=== PATIENT | female | born 1965 | race Caucasian/White ===

== ENCOUNTER 2023-07-30 15:29 | Outpatient (CLI) | payer BC | END 2023-07-30 23:59 | disposition home or self-care (01) | LOC: MRI 15:29 | PROVIDERS: ATTEND Family Medicine Sports Medicine | DX: S83.282A Other tear of lateral meniscus, current injury, left knee, initial encounter (principal); M79.672 Pain in left foot; M25.562 Pain in left knee; M23.302 Other meniscus derangements, unspecified lateral meniscus, unspecified knee; M17.12 Unilateral primary osteoarthritis, left knee; M25.462 Effusion, left knee; R60.0 Localized edema; M71.22 Synovial cyst of popliteal space [Baker], left knee; M94.8X6 Other specified disorders of cartilage, lower leg; M22.42 Chondromalacia patellae, left knee; X58.XXXA Exposure to other specified factors, initial encounter; Y93.89 Activity, other specified; Y99.8 Other external cause status; Y92.89 Other specified places as the place of occurrence of the external cause | CPT/HCPCS: 73721 ==

== ENCOUNTER 2024-01-09 07:11 | Inpatient (IN) | payer BC ==
[2024-01-07 15:21] LABS: BILIRUBIN,URINE NEGATIVE (Neg); CLARITY,URINE SLIGHTLY CLOUDY (Clear); COLOR,URINE YELLOW (Yellow); GLUCOSE, URINE NEGATIVE (Neg); KETONES,URINE TRACE mg/dl (Neg); LEUKOCYTE ESTERASE ,URINE NEGATIVE (Neg); NITRITES, URINE NEGATIVE (Neg); OCCULT BLOOD,URINE NEGATIVE (Neg); PH,URINE 5.5 (4.8-8.0); PROTEIN,URINE NEGATIVE (Neg); UROBILINOGEN,URINE 0.2 E.U/dL (0.2-1.0)
[2024-01-07 15:29] LABS: BASOPHILS # (AUTO) 0.1 X10'3 (0-0.2); BASOPHILS % (AUTO) 0.7 % (0-1); EOSINOPHILS # (AUTO) 0.6 X10'3 (0-0.9); EOSINOPHILS % (AUTO) 8.5 % (0-6); LYMPHOCYTES # (AUTO) 1.5 X10'3 (1.1-4.8); LYMPHOCYTES % (AUTO) 19.8 % (21-51); MEAN CORPUSCULAR HEMOGLOBIN 30.6 PG (27.0-31.0); MEAN CORPUSCULAR HGB CONC 32.9 g/dL (33.0-36.5); MEAN PLATELET VOLUME 7.6 FL (7.4-10.4); MONOCYTES # (AUTO) 0.8 X10'3 (0-0.9); MONOCYTES % (AUTO) 10.3 % (2-12); NEUTROPHILS # (AUTO) 4.6 X10'3 (1.8-7.7); NEUTROPHILS % (AUTO) 60.7 % (42-75); PRE OP HEMOGLOBIN 11.5 g/dL (12.0-16.0); PRE OP PLATELET COUNT 260 X10'3 (140-440); PRE OP WHITE BLOOD COUNT 7.6 10'3 (4.8-10.8); RED BLOOD COUNT 3.76 X10'6 (4.20-5.60); RED CELL DISTRIBUTION WIDTH 14.2 % (11.5-14.5)
[2024-01-07 15:36] LABS: PRE OP PROTIME 10.9 SECONDS (9.0-12.0)
[2024-01-07 15:38] LABS: UA COLLECTION TYPE CLN CATCH MIDSTREAM
[2024-01-07 15:40] LABS: WBC,URINE 0-4 /HPF (0-4)
[2024-01-07 15:41] LABS: BACTERIA,URINE 1+ /HPF (Neg); RBC,URINE NONE SEEN /HPF (0-2)
[2024-01-07 15:42] LABS: HYALINE CASTS 0-3 /LPF (NEGATIVE); MUCUS STRANDS FEW /LPF (Neg); SQUAMOUS EPITHELIAL CELL,UR MANY /LPF (FEW)
[2024-01-07 15:45] LABS: ALBUMIN 3.2 G/DL (3.4-5.0); ALBUMIN/GLOBULIN RATIO 0.8 (1.1-1.5); ALKALINE PHOSPHATASE 118 IU/L (46-116); BLOOD UREA NITROGEN 11 MG/DL (7-18); BUN/CREATININE RATIO 12.2 (10.0-20.0); CALCIUM 9.2 MG/DL (8.5-10.1); CHLORIDE 105 MMOL/L (99-107); PRE OP ALT 14 U/L (30-65); PRE OP ANION GAP 5 (8-16); PRE OP AST 11 U/L (10-37); PRE OP BILIRUB, TOTAL 0.3 MG/DL (0.0-1.0); PRE OP GLUCOSE 72 MG/DL (70-104); PRE OP POTASSIUM 4.1 MMOL/L (3.4-5.1); PRE OP SODIUM 139 MMOL/L (135-145); THYROID STIMULATING HORMONE 0.02 ulU/ml (0.34-4.50); TOTAL CARBON DIOXIDE 29.2 MMOL/L (24-32); TOTAL PROTEIN 7.4 G/DL (6.4-8.2); eGFR 64 ML/MIN
[2024-01-08 10:19] LABS: ABG BASE EXCESS 0.7 mmol/L (-2.0-3.0); ABG HCO3 25.2 mmol/L (21.0-28.0); ABG OXYGEN SATURATION 96.6 % (94.0-98.0); ABG PCO2 (T) 39.9 mmHg (32.0-45.0); ABG PH (T) 7.418 (7.350-7.450); ABG PO2 (T) 84.5 mmHg (83.0-108.0); ALLEN'S TEST POSITIVE; FCOHb 0.3 % (0.5-1.5); FHHb 3.4 % (0.0-5.0); FMetHb 0.3 % (0.0-1.5); MODE ROOM AIR; TOTAL HEMOGLOBIN 12.3 G/dl (12.0-16.0)
[~2024-01-09] VITALS: Ht 172.7 cm; Wt 76.2 kg
[2024-01-09] VITALS (23 sets, daily range): BP systolic 92–132; BP diastolic 59–89; PULSE 56–71; RESP 12–27; TEMP 97.4–98.7; O2SAT 92–100
[2024-01-09] MEDS: ceFAZolin 2gm in dextrose, iso 50 ML IV ONE (05:30)
[~2024-01-09 07:11] MED LIST: BUPR300T53 PO; CELE-127 PO; FLUO20CA39 PO; GABA300C PO; LEVO137T2 PO
[2024-01-09] MEDS ORDERED: iohexol 300mg/ml 100ml inj. ONE (08:19)
[2024-01-09] MEDS ORDERED: iohexol 300 MG/1 ML 50ml polymer ONE (08:19)
[2024-01-09] MEDS: famotidine 20mg tablet PO ONE (09:01)
[2024-01-09] MEDS: ringers solution, lacted 1,000 ML IV SCH ×2 (09:02→16:08)
[2024-01-09] MEDS ORDERED: hydrALAZINE 20mg/ml inj. IV PRN (09:25)
[2024-01-09] MEDS ORDERED: morphine 4 MG/ML inj SYRINge IV PRN ×2 (09:25→15:05)
[2024-01-09] MEDS ORDERED: labetalol 20mg/4ml (5mg/ml) syringe IV PRN (09:25)
[2024-01-09] MEDS ORDERED: fentaNYL/PF 50MCG/1 ML 2ML syringe IV PRN (09:25)
[2024-01-09] MEDS ORDERED: ondansetron/PF 4mg/2ml inj IV PRN (09:25)
[2024-01-09] MEDS ORDERED: morphine 2 MG/ML inj. syringe IV PRN ×2 (09:25→15:05)
[2024-01-09] MEDS ORDERED: LIDOcaine 1% (10mg/ml) 2ml vial ONE (09:28)
[2024-01-09] MEDS ORDERED: BUPIVAcaine 2.5mg/ml inj 50ml vial (contains preservative) ONE (10:41)
[2024-01-09] MEDS ORDERED: sevoflurane 250ml liquid IH ONE (10:41)
[2024-01-09] MEDS ORDERED: midazolam 1 mg/ML 2ml injection ONE (10:45)
[2024-01-09] MEDS ORDERED: fentaNYL /PF 50mcg/ml 5ml ampule ONE (10:46)
[2024-01-09] MEDS ORDERED: BUPIVACAINE liposomal/PF 13.3 MG/ML vial IM ONE (10:51)
[2024-01-09] MEDS ORDERED: acetaminophen 1,000mg/100ml IV 100 ML IV ONE (11:22)
[2024-01-09] MEDS ORDERED: LIDOcaine 2% (20mg/ml) 5ml vial ONE (11:24)
[2024-01-09] MEDS ORDERED: propofol inj 20 ML IV ONE (11:24)
[2024-01-09] MEDS ORDERED: ondansetron/PF 4mg/2ml inj ONE (11:24)
[2024-01-09] MEDS ORDERED: rocuronium 10mg/ml inj IV ONE ×2 (11:25)
[2024-01-09] MEDS: BUPIVAcaine 2.5mg/ml inj 50ml vial (contains preservative) SQ ONE (11:47)
[2024-01-09] MEDS ORDERED: albumin (Human) 5% 250ml 250 ML IV ONE (11:52)
[2024-01-09] MEDS ORDERED: ePHEDrine 50MG/ML INJ. ONE (11:54)
[2024-01-09] MEDS ORDERED: sugammadex 200mg/2ml injection IV ONE (13:44)
[2024-01-09] MEDS ORDERED: HYDROmorphone inj. 0.5 MG/0.5 ML DISP.SYRIN IV PRN (15:05)
[2024-01-09] MEDS ORDERED: albuterol 2.5 MG/3 ML nebule NEB PRN (15:05)
[2024-01-09] MEDS ORDERED: metoclopramide 5 mg/ml inj IV PRN (15:05)
[2024-01-09 15:31] LABS: ABG BASE EXCESS -2.6 mmol/L (-2.0-3.0); ABG HCO3 23.3 mmol/L (21.0-28.0); ABG OXYGEN SATURATION 89.8 % (94.0-98.0); ABG PCO2 (T) 43.1 mmHg (32.0-45.0); ABG PH (T) 7.346 (7.350-7.450); ABG PO2 (T) 57.3 mmHg (83.0-108.0); FCOHb 0.2 % (0.5-1.5); FHHb 10.1 % (0.0-5.0); FLOW 2 L/min; FMetHb 0.3 % (0.0-1.5); FO2Hb 89.4 % (94.0-98.0); MODE NASAL CANNULA; TOTAL HEMOGLOBIN 11.6 G/dl (12.0-16.0)
[2024-01-09] MEDS: ketorolac trometh 30MG/ML vial 30 MG/ML VIAL IV PRN (15:59)
[2024-01-09] MEDS ORDERED: gabapentin 300mg capsule PO PRN (17:10)
[2024-01-09] MEDS: ceFAZolin 1GM/D5W- ADD-VANTAGE 50 ML IV SCH (17:42)
[2024-01-09] MEDS: fentaNYL/PF 50MCG/1 ML 2ML syringe IV PRN (17:47)
[2024-01-09] MEDS: celeCOXIB 100mg capsule PO SCH (20:07)
[2024-01-09] MEDS: BUPROPION HCL 150MG XL 24 HR 150 MG TAB PO SCH (20:08)
[2024-01-09] MEDS: gabapentin 300mg capsule PO SCH (20:08)
[2024-01-09] MEDS: FLUoxetine 20mg capsule PO SCH (20:08)
[2024-01-09] MEDS: potassium Cl 20mEq in D5-NS 1,000 ML IV SCH (21:40)
[2024-01-10] VITALS (9 sets, daily range): BP systolic 104–130; BP diastolic 49–64; PULSE 68–75; RESP 14–16; TEMP 97.2–98.5; O2SAT 93–100
[2024-01-10] MEDS: levoTHYROXINE 112mcg tablet PO SCH (07:52)
[2024-01-10] MEDS: levoTHYROXINE 25mcg tablet PO SCH (07:53)
[2024-01-10] MEDS: acetaminophen 325mg tablet PO PRN (11:12)
[2024-01-10] MEDS: HYDROcodone/acetaminophen 10/325mg tab PO PRN ×2 (14:45→23:13)
[2024-01-10] MEDS: magnesium oxide 400mg tablet PO SCH (19:43)
[2024-01-10] MEDS: magnesium hydroxide 30ml (MOM) UD suspension PO SCH (19:46)
[2024-01-11] VITALS (9 sets, daily range): BP systolic 106–120; BP diastolic 46–64; PULSE 64–80; RESP 16–18; TEMP 97.3–98.9; O2SAT 87–98
[2024-01-11 08:20] LABS: BASOPHILS % (AUTO) 0.4 % (0-1); EOSINOPHILS # (AUTO) 0.3 X10'3 (0-0.9); EOSINOPHILS % (AUTO) 3.4 % (0-6); HEMATOCRIT 30.3 % (35.0-45.0); LYMPHOCYTES # (AUTO) 1.6 X10'3 (1.1-4.8); LYMPHOCYTES % (AUTO) 17.8 % (21-51); MEAN CORPUSCULAR HEMOGLOBIN 30.5 PG (27.0-31.0); MEAN CORPUSCULAR HGB CONC 32.8 g/dL (33.0-36.5); MEAN CORPUSCULAR VOLUME 92.8 FL (78-98); MEAN PLATELET VOLUME 7.9 FL (7.4-10.4); MONOCYTES # (AUTO) 0.8 X10'3 (0-0.9); MONOCYTES % (AUTO) 8.8 % (2-12); NEUTROPHILS # (AUTO) 6.1 X10'3 (1.8-7.7); NEUTROPHILS % (AUTO) 69.6 % (42-75); PLATELET COUNT 228 X10'3 (140-440); RED BLOOD COUNT 3.27 X10'6 (4.20-5.60); RED CELL DISTRIBUTION WIDTH 14.1 % (11.5-14.5); WHITE BLOOD COUNT 8.8 X10'3 (4.5-11.0)
[2024-01-11 08:47] LABS: ALANINE AMINOTRANSFERASE 13 U/L (12-78); ALBUMIN 2.7 G/DL (3.4-5.0); ALBUMIN/GLOBULIN RATIO 0.8 (1.1-1.5); ALKALINE PHOSPHATASE 87 IU/L (46-116); ANION GAP 3 (8-16); ASPARTATE AMINO TRANSFERASE 18 U/L (10-37); BILIRUBIN,TOTAL 0.3 MG/DL (0.1-1.0); BLOOD UREA NITROGEN 7 MG/DL (7-18); BUN/CREATININE RATIO 8.2 (10.0-20.0); CALCIUM 8.6 MG/DL (8.5-10.1); CHLORIDE 103 MMOL/L (99-107); CREATININE 0.85 MG/DL (0.40-0.90); GLUCOSE 99 MG/DL (70-104); POTASSIUM 4.2 MMOL/L (3.5-5.1); SODIUM 137 MMOL/L (135-145); TOTAL CARBON DIOXIDE 30.9 MMOL/L (24-32); TOTAL PROTEIN 6.3 G/DL (6.4-8.2); eCRCL 71 ML/MIN; eGFR 68 ML/MIN
[2024-01-12] VITALS (9 sets, daily range): BP systolic 97–112; BP diastolic 48–67; PULSE 61–82; RESP 14–18; TEMP 97.3–98.6; O2SAT 94–99
[2024-01-13] VITALS (7 sets, daily range): BP systolic 100–132; BP diastolic 53–68; PULSE 65–88; RESP 14–20; TEMP 97.2–98.8; O2SAT 94–99
[2024-01-13 11:43] LABS: BASOPHILS % (AUTO) 0.2 % (0-1); EOSINOPHILS # (AUTO) 0.3 X10'3 (0-0.9); EOSINOPHILS % (AUTO) 4.1 % (0-6); HEMOGLOBIN 10.6 g/dl (12.0-16.0); MEAN CORPUSCULAR HEMOGLOBIN 30.7 PG (27.0-31.0); MEAN CORPUSCULAR VOLUME 93.1 FL (78-98); MEAN PLATELET VOLUME 7.9 FL (7.4-10.4); MONOCYTES # (AUTO) 0.5 X10'3 (0-0.9); MONOCYTES % (AUTO) 7.6 % (2-12); NEUTROPHILS # (AUTO) 5.1 X10'3 (1.8-7.7); NEUTROPHILS % (AUTO) 73.1 % (42-75); PLATELET COUNT 270 X10'3 (140-440); RED BLOOD COUNT 3.44 X10'6 (4.20-5.60); WHITE BLOOD COUNT 6.9 X10'3 (4.5-11.0)
[2024-01-13 11:59] LABS: ALBUMIN 2.4 G/DL (3.4-5.0); ANION GAP 3 (8-16); BLOOD UREA NITROGEN 6 MG/DL (7-18); BUN/CREATININE RATIO 7.5 (10.0-20.0); CALCIUM 9.2 MG/DL (8.5-10.1); CHLORIDE 105 MMOL/L (99-107); GLUCOSE 100 MG/DL (70-104); POTASSIUM 4.1 MMOL/L (3.5-5.1); SODIUM 139 MMOL/L (135-145); TOTAL CARBON DIOXIDE 30.6 MMOL/L (24-32); eCRCL 75 ML/MIN; eGFR 73 ML/MIN
[2024-01-13] MEDS: ALPRAZolam 0.25mg tablet PO ONE (20:35)
[2024-01-14] VITALS (10 sets, daily range): BP systolic 98–127; BP diastolic 49–69; PULSE 69–86; RESP 12–20; TEMP 97.9–98.5; O2SAT 92–99
[2024-01-15 02:00] VITALS: BP 101/60; PULSE 72; RESP 16; TEMP 97.9; O2SAT 98
[2024-01-15 07:00] VITALS: BP 110/63; PULSE 76; RESP 16; TEMP 98; O2SAT 96
[2024-01-15 10:33] VITALS: PULSE 77; RESP 18; O2SAT 97
[2024-01-15 11:00] VITALS: BP 117/69; PULSE 80; RESP 18; TEMP 98.1; O2SAT 99
[2024-01-15 15:46] VITALS: BP 127/65; PULSE 66; RESP 14; TEMP 97.6; O2SAT 97
== END 2024-01-15 16:15 | disposition home or self-care (01) | DRG 164 ==
LOC: PAS IN 07:11 → PCU 3S 19:20
PROVIDERS: ADMIT Surgery; ATTEND Surgery
PROC: 07B74ZZ Excision of Thorax Lymphatic, Percutaneous Endoscopic Approach (ICD-10-PCS; 2024-01-09)
PROC: 8E0W4CZ Robotic Assisted Procedure of Trunk Region, Percutaneous Endoscopic Approach (ICD-10-PCS; 2024-01-09)
PROC: 0B9N40Z Drainage of Right Pleura with Drainage Device, Percutaneous Endoscopic Approach (ICD-10-PCS; 2024-01-09)
PROC: BW241ZZ Computerized Tomography (CT Scan) of Chest and Abdomen using Low Osmolar Contrast (ICD-10-PCS; 2024-01-09)
PROC: 0BTF4ZZ Resection of Right Lower Lung Lobe, Percutaneous Endoscopic Approach (ICD-10-PCS; principal; 2024-01-09 10:41)
DX: C34.31 Malignant neoplasm of lower lobe, right bronchus or lung (principal); J93.82 Other air leak; J93.9 Pneumothorax, unspecified; Z88.2 Allergy status to sulfonamides
CPT/HCPCS: Z7506; Z7508; 36415; 36600; 70470; 71045; 71046; 71260; 80048; 80053; 81001; 82803; 82948; 84443; 85018; 85025; 85610; 85730; 86885; 86900; 86901; 87081; 93005; 94760; 97116; 97161; 97530; A4615; A4618; A6234; A6258; A6449; A7000; A7048; C1758; C9250; C9290; G0378; J0131; J0690; J1100; J1885; J2003; J2250; J2371; J2405; J2704; J3010; J3480; J3490; J7040; J7120; P9045; Q9967